=== PATIENT | female | born 1965 | race Caucasian/White ===

== ENCOUNTER 2017-04-13 07:20 | Day surgery (SDC) | payer MEDICAID ==
[~2017-04-13 07:20] MED LIST: Bupivacaine 0.5% 50 ML MDV ONE; Lidocaine 1% with EPINEPHrine 1:100,000 50 ML MDV ONE
[2017-04-13] MEDS ORDERED: Rocuronium 50 MG/5 ML Vial ONE (07:39)
[2017-04-13] MEDS ORDERED: Ondansetron 4 MG/2 ML SDV ONE (07:39)
[2017-04-13] MEDS ORDERED: Dexamethasone 4 MG/ML SDV ONE (07:39)
[2017-04-13] MEDS ORDERED: Succinylcholine 200 MG/10 ML MDV ONE (07:39)
[2017-04-13] MEDS ORDERED: Propofol 200 MG/20 ML SDV ONE (07:39)
[2017-04-13] MEDS ORDERED: Glycopyrrolate 0.2 MG/ML 5 ML MDV ONE (07:39)
[2017-04-13] MEDS ORDERED: Neostigmine Methylsulfate 1 MG/ML 5 ML Syringe ONE (07:39)
[2017-04-13] MEDS: Sodium Chloride 0.9% 1,000 ML IV SCH ×2 (07:58→10:56)
[2017-04-13] MEDS ORDERED: metroNIDAZOLE/Normal Saline 500 MG in Premix Bag 1 BAG IV ONE (08:00)
[2017-04-13] MEDS ORDERED: ceFAZolin 2 GM in Sodium Chloride 0.9% 50 ML IV ONE (08:15)
[2017-04-13] MEDS ORDERED: Bisacodyl 5 MG Tab PO PRN (09:42)
[2017-04-13] MEDS ORDERED: Zolpidem 5 MG Tab PO PRN (09:42)
[2017-04-13] MEDS ORDERED: Docusate Sodium 100 MG Cap PO PRN (09:42)
[2017-04-13] MEDS ORDERED: diphenhydrAMINE 50 MG/ML SDV IVPUSH PRN (09:42)
[2017-04-13] MEDS ORDERED: hydrOXYzine HCl 100 MG/2 ML SDV IM PRN (09:42)
[2017-04-13] MEDS ORDERED: Acetaminophen/HYDROcodone 325-5 MG Tab PO PRN (09:42)
[2017-04-13] MEDS ORDERED: Benzocaine/Cetylpyridinium/Menthol Lozenge MUCMEM PRN (09:42)
[2017-04-13 14:16] VITALS: BP 145/73
--- NOTE | 2017-04-16 08:06 | OR ---
DATE OF PROCEDURE: 04/13/2017 PREOPERATIVE DIAGNOSIS: Recurrent ventral hernia, incarcerated. POSTOPERATIVE DISGNOSIS: Recurrent ventral hernia, incarcerated. PROCEDURE: 1. Laparoscopic ventral hernia repair x2, these were incarcerated, non strangulated. 2. Extensive lysis of adhesions, abdomen. COMPLICATIONS: None. TEST DESIGNER: None. ANESTHESIA: General/local. INDICATION: A 51-year-old female with recurrent ventral hernias requiring repair. Risks, benefits, alternatives, and limitations, including, but not to infection, bleeding, injury to abdominal structures such as bowel, bladder, and blood vessels were explained and the patient wished to proceed. PROCEDURE IN DETAIL: The patient was placed in supine position. In the right mid abdomen, a heidi was created in the skin. A Veress needle was used to enter the abdomen which was insufflated without difficulty. This was then followed by an Optiview trocar. Once the abdomen was insufflated, no other evidence of enterotomy or injury was noted during entry. Two additional 10 mm ports were placed under direct visualization. An additional 5 mm ports were also placed later in the procedure to facilitate tack placement. Lysis of adhesions was commenced next. There was noted to be bowel approximation to the adhesions. However, this was not interacted with in any way, and using a combination of sharp and blunt electrocautery, dissection was used to dissect the significant adhesions noted. During this process, the two ventral hernias in close approximation to each other were noted. There was approximately 1 to 2 cm each, one was incarcerated one was not. There was no evidence of strangulation in either of these. A 15 cm Ventralex mesh was introduced and tacked to the abdominal wall. The fluid was removed. This procedure was performed without difficulty. The abdomen was inspected without any evidence of ongoing bleeding though was thoroughly irrigated. The tacks were placed in approximately 1 cm less interval around the edge of the mesh of a 2nd ring performed. The wounds were then closed after the abdomen was desufflated. These were closed with 3-0 Vicryl and 4-0 Vicryl interrupted running fashion. Dermabond was applied. Abdominal binder was also applied. Levi Perales MD /[id number]
== END 2017-04-13 16:00 | disposition home or self-care (01) ==
LOC: JP.SDS 07:20 → JP.MS 09:42 → JP.SDS 16:00
PROVIDERS: ATTEND Surgery
DX: K43.6 Other and unspecified ventral hernia with obstruction, without gangrene (principal); I10 Essential (primary) hypertension; Z87.891 Personal history of nicotine dependence; Z98.890 Other specified postprocedural states; Z79.899 Other long term (current) drug therapy
CPT/HCPCS: 49653; A9270; J0690; J1100; J2405; J2704; J2710; J3010; J7040; J7050; C1781; J0330

== ENCOUNTER 2019-09-19 08:08 | Day surgery (SDC) | payer MEDICAID ==
[~2019-09-19 08:08] MED LIST changes: +Lidocaine 2% Jelly 10 ML Urojet ONE
[2019-09-19] MEDS ORDERED: Sodium Chloride 0.9% 1,000 ML IV SCH (08:15)
[2019-09-19] MEDS ORDERED: Midazolam 1 MG/ML 2 ML SDV ONE (08:44)
[2019-09-19] MEDS ORDERED: fentaNYL 100 MCG/2 ML SDV ONE (08:44)
[2019-09-19] MEDS ORDERED: Propofol 200 MG/20 ML SDV ONE (08:44)
[2019-09-19] MEDS ORDERED: ceFAZolin 2 GM in Premix Bag 1 BAG IV ONE (09:00)
[2019-09-19] MEDS ORDERED: metroNIDAZOLE/Normal Saline 500 MG in Premix Bag 1 BAG IV ONE (09:00)
[2019-09-19 10:41] VITALS: BP 130/90; PULSE 69
--- NOTE | 2019-09-20 11:03 | OR ---
DATE OF PROCEDURE: 09/19/2019 SURGEON: Levi Perales MD PROCEDURE: Hemorrhoidectomy, internal, external. COMPLICATIONS: None. CUSTOMER SUPPORT AGENT: None. ANESTHESIA: MAC. PREOPERATIVE DIAGNOSIS: Hemorrhoids. POSTOPERATIVE DIAGNOSIS: Hemorrhoids. RISKS: Risks, benefits, alternatives, and limitations including, but not limited to infection, bleeding, perforation, chronic wounds, and fistula formation were explained to the patient, understanding these risks, wishes to proceed. PROCEDURE IN DETAIL: The patient was placed in prone margaret-knife position. The internal/external hemorrhoid was identified. This was more consistent with a hemorrhoidal tag externally. Nonetheless, this was painful to the patient and an elliptical incision was made and this was removed. This was then closed with a chromic running suture. Dressings were applied. The patient tolerated the procedure well. Levi Perales MD /[id number]
== END 2019-09-19 11:00 | disposition home or self-care (01) ==
LOC: JP.SDS 08:08
PROVIDERS: ATTEND Surgery
DX: K64.8 Other hemorrhoids (principal); K64.4 Residual hemorrhoidal skin tags; I10 Essential (primary) hypertension; K21.9 Gastro-esophageal reflux disease without esophagitis; F32.1 Major depressive disorder, single episode, moderate; F41.9 Anxiety disorder, unspecified; G40.909 Epilepsy, unspecified, not intractable, without status epilepticus; F17.210 Nicotine dependence, cigarettes, uncomplicated; Z79.899 Other long term (current) drug therapy
CPT/HCPCS: 46255; J0690; J2250; J2704; J3010; J3490; J7030